=== PATIENT | female | born 1960 | race African-American/Black ===

== ENCOUNTER 2019-09-09 12:42 | Inpatient (IN) | payer MEDICARE, MEDICAID ==
[~2019-09-09] VITALS: Ht 165.1 cm; Wt 52.8 kg
[2019-09-09] MEDS ORDERED: INSULIN (12:51)
[2019-09-09] MEDS ORDERED: HALOPERIDOL LACTATE 5MG/ML VIAL IM ONE ×2 (13:00→13:12)
[2019-09-09] MEDS ORDERED: GLUCAGON,HUMAN RECOMBINANT 1MG/VIAL ONE (13:00)
[2019-09-09] MEDS ORDERED: LORAZEPAM 2MG/ML CPJ ONE (13:13)
[2019-09-09] MEDS ORDERED: DEXTROSE 50% WATER 50ML SYRINGE IV ONE ×2 (13:38→14:27)
[2019-09-09 13:47] LABS: BASOPHILS % 0.3 % (0.0-2.0); EOSINOPHILS % 0.2 % (0.0-5.0); HEMATOCRIT. 35.3 % (36.0-48.0); HEMOGLOBIN. 12.4 g/dL (12.0-16.0); LYMPHOCYTES % 9.2 % (20.0-50.0); MEAN CORPUSCULAR HEMOGLOBIN 33.6 pg (28.0-32.0); MEAN CORPUSCULAR VOLUME 96.2 fL (81.0-99.0); MEAN PLATELET VOLUME 8.6 fl (7.4-10.4); MONOCYTES % 7.3 % (2.0-8.0); PLATELET 309 x1000/uL (130-400); RED BLOOD CELL COUNT 3.67 mill/uL (4.2-5.4); RED CELL DISTRIBUTION WIDTH 15.5 % (11.6-14.6)
[2019-09-09 13:57] LABS: CHLORIDE 103 mEq/L (98-107)
[2019-09-09 13:59] LABS: ETHANOL BLOOD < 10 mg/dL
[2019-09-09] MEDS ORDERED: DEXT 5% WATER 500 ML IV ONE (14:30)
[2019-09-09] MEDS ORDERED: DEXTROSE 10% WATER 500 ML IV ONE (14:30)
[2019-09-09 14:43] LABS: CLARITY URINE CLEAR (CLEAR); COLOR URINE YELLOW (YELLOW); KETONES URINE NEGATIVE (NEGATIVE); LEUKOCYTE ESTERASE URINE NEGATIVE (NEGATIVE); NITRITE URINE NEGATIVE (NEGATIVE); OCCULT BLOOD URINE TRACE (NEGATIVE); PROTEIN URINE 2+ (NEGATIVE); SPECIFIC GRAVITY URINE 1.017 (1.005-1.030); UROBILINOGEN URINE 0.2 E.U./dL (0.2-1.0)
[2019-09-09 15:02] LABS: *AMPHETAMINES SCREEN URINE NEGATIVE (NEGATIVE); *BARBITURATES SCREEN URINE NEGATIVE (NEGATIVE); CANNABINOID URINE SCREEN NEGATIVE (NEGATIVE); OPIATES URINE SCREEN NEGATIVE (NEGATIVE); PHENCYCLIDINE URINE SCREEN NEGATIVE (NEGATIVE)
[2019-09-09 15:03] LABS: *COCAINE SCREEN URINE NEGATIVE (NEGATIVE); METHADONE URINE SCREEN NEGATIVE (NEGATIVE)
[2019-09-09 15:05] LABS: *BENZODIAZEPINES SCREEN URINE NEGATIVE (NEGATIVE)
[2019-09-09] MEDS ORDERED: DEXT 5%/0.45% NACL 1000ML 1,000 ML IV SCH (19:52)
[2019-09-09] MEDS ORDERED: DOCUSATE SODIUM 100MG CAPSULE PO PRN (20:00)
[2019-09-09] MEDS ORDERED: HALOPERIDOL LACTATE 5MG/ML VIAL IM PRN (20:00)
[2019-09-09] MEDS ORDERED: GUAIFENESIN 200MG/10ML SUGAR FREE UDC PO PRN (20:00)
[2019-09-09] MEDS ORDERED: DEXTROSE 50% WATER 50ML SYRINGE IV PRN ×2 (20:00→22:30)
[2019-09-09] MEDS ORDERED: MAGNESIUM/ALUMINUM HYDROXIDE/SIMETHICONE 30ML UDC PO PRN (20:00)
[2019-09-09] MEDS ORDERED: HYDRALAZINE 20MG/ML VIAL IV PRN (20:00)
[2019-09-09] MEDS ORDERED: DIPHENHYDRAMINE 50MG/ML VIAL IV PRN (20:00)
[2019-09-09] MEDS ORDERED: ONDANSETRON HCL 4MG/2ML INJ IV PRN (20:00)
[2019-09-09] MEDS ORDERED: CLONIDINE 0.1MG TABLET PO PRN (20:00)
[2019-09-09] MEDS ORDERED: HYDROCODONE/ACETAMINOPHEN 10/325MG TABLET PO PRN (20:00)
[2019-09-09] MEDS ORDERED: MORPHINE SULFATE 2 MG/ML CPJ (NOT FOR IM USE) IV PRN (20:00)
[2019-09-09] MEDS ORDERED: IPRATROPIUM/ALBUTEROL 0.5-3(2.5)MG/3ML NEB NEB PRN (20:00)
[2019-09-09] MEDS ORDERED: ACETAMINOPHEN 325MG TABLET PO PRN (20:00)
[2019-09-09] MEDS: ENOXAPARIN 40MG/0.4ML SYR SUBCUT SCH (21:23)
[2019-09-09] MEDS ORDERED: CEFTRIAXONE 1 G PREMIX 50 ML IV NR (22:30)
[2019-09-09] MEDS: INSULIN LISPRO 100 UNITS/ML SUBCUT SCH (22:50)
[2019-09-09] MEDS: SODIUM CHLORIDE 0.45% 1,000 ML IV SCH (23:06)
[2019-09-09] MEDS: LORAZEPAM 2MG/ML CPJ IV PRN (23:15)
[2019-09-09 23:58] VITALS: BP 122/78
[2019-09-10] VITALS (7 sets, daily range): BP systolic 110–150; BP diastolic 78–97
[2019-09-10] MEDS: SODIUM CHLORIDE 0.9% INJ 3ML FLUSH IVF SCH ×4 (01:36→21:41)
[2019-09-10] MEDS: BLOOD SUGAR DIAGNOSTIC STRIP TEST SCH ×5 (01:37→21:40)
[2019-09-10] MEDS: LORAZEPAM 2MG/ML CPJ IV PRN ×3 (06:21→19:03)
[2019-09-10 07:35] LABS: BASOPHILS % 0.9 % (0.0-2.0); EOSINOPHILS % 0.7 % (0.0-5.0); HEMATOCRIT. 34.9 % (36.0-48.0); HEMOGLOBIN. 11.9 g/dL (12.0-16.0); LYMPHOCYTES % 19.8 % (20.0-50.0); MEAN CORPUSCULAR HEMOGLOBIN 32.9 pg (28.0-32.0); MEAN CORPUSCULAR VOLUME 96.1 fL (81.0-99.0); MEAN PLATELET VOLUME 8.8 fl (7.4-10.4); MONOCYTES % 12.3 % (2.0-8.0); NEUTROPHILS % 66.3 % (40.0-76.0); PLATELET 320 x1000/uL (130-400); RED BLOOD CELL COUNT 3.63 mill/uL (4.2-5.4); RED CELL DISTRIBUTION WIDTH 15.9 % (11.6-14.6)
[2019-09-10 07:50] LABS: CHLORIDE 103 mEq/L (98-107)
[2019-09-10] MEDS: INSULIN LISPRO 100 UNITS/ML SUBCUT SCH ×4 (07:50→21:00)
[2019-09-10] MEDS ORDERED: LORAZEPAM 2MG/ML CPJ IV PRN (09:00)
[2019-09-10] MEDS: SODIUM CHLORIDE 0.45% 1,000 ML IV SCH (12:29)
[2019-09-10] MEDS: ENOXAPARIN 40MG/0.4ML SYR SUBCUT SCH (21:40)
[2019-09-10] MEDS: LORAZEPAM 2MG/ML CPJ IM PRN (22:25)
[2019-09-11] VITALS: BP 142/77
[2019-09-11] MEDS: SODIUM CHLORIDE 0.45% 1,000 ML IV SCH ×2 (00:53→16:13)
[2019-09-11 04:50] VITALS: BP 154/90
[2019-09-11] MEDS: SODIUM CHLORIDE 0.9% INJ 3ML FLUSH IVF SCH ×2 (06:02→14:48)
[2019-09-11] MEDS: BLOOD SUGAR DIAGNOSTIC STRIP TEST SCH ×4 (06:21→20:39)
[2019-09-11 08:00] VITALS: BP 135/81
[2019-09-11] MEDS: INSULIN LISPRO 100 UNITS/ML SUBCUT SCH ×4 (08:04→20:38)
[2019-09-11 08:22] LABS: VITAMIN B12 SERUM 1491 pg/mL (211-911)
[2019-09-11] MEDS: LORAZEPAM 2MG/ML CPJ IM PRN (10:31)
[2019-09-11 12:00] VITALS: BP 135/72
[2019-09-11] MEDS ORDERED: INSULIN LISPRO 100 UNITS/ML SUBCUT PRN ×2 (12:20→12:50)
[2019-09-11] MEDS ORDERED: RISPERIDONE 0.25MG TABLET PO SCH (14:30)
[2019-09-11 16:00] VITALS: BP 151/83
[2019-09-11] MEDS: LORAZEPAM 2MG/ML CPJ IV PRN (16:28)
[2019-09-11 20:00] VITALS: BP 136/78
[2019-09-11] MEDS: ENOXAPARIN 40MG/0.4ML SYR SUBCUT SCH (20:38)
[2019-09-11] MEDS: RISPERIDONE 0.25MG TABLET PO SCH (20:38)
[2019-09-12] VITALS: BP 130/80
[2019-09-12] MEDS: LORAZEPAM 2MG/ML CPJ IM PRN (02:49)
[2019-09-12 04:00] VITALS: BP 140/83
[2019-09-12] MEDS: BLOOD SUGAR DIAGNOSTIC STRIP TEST SCH (07:20)
[2019-09-12 07:59] VITALS: BP 118/78
[2019-09-12] MEDS: RISPERIDONE 0.25MG TABLET PO SCH (10:05)
[2019-09-12] MEDS: INSULIN LISPRO 100 UNITS/ML SUBCUT SCH (10:08)
[2019-09-12 12:11] VITALS: BP 135/80
[2019-09-12 12:19] VITALS: BP 135/80
== END 2019-09-12 12:50 | disposition home or self-care (01) | DRG 637 ==
LOC: ER 12:42 → 6WST 18:11 → ENRESERV 21:37 → 6WST 09-10
PROVIDERS: ADMIT Internal Medicine; ATTEND Internal Medicine
DX: E11.649 Type 2 diabetes mellitus with hypoglycemia without coma (principal); G93.41 Metabolic encephalopathy; N39.0 Urinary tract infection, site not specified; Z68.1 Body mass index [BMI] 19.9 or less, adult; E46 Unspecified protein-calorie malnutrition; E44.1 Mild protein-calorie malnutrition; F99 Mental disorder, not otherwise specified; R62.7 Adult failure to thrive; G24.01 Drug induced subacute dyskinesia; T50.905A Adverse effect of unspecified drugs, medicaments and biological substances, initial encounter; Y92.89 Other specified places as the place of occurrence of the external cause; L81.9 Disorder of pigmentation, unspecified
CPT/HCPCS: 36415; 80053; 80305; 80320; 81003; 82607; 82962; 83036; 84443; 85025; 93970; 99291; J0696; J1200; J1610; J1630; J1650; J1815; J2060; J7060; G0480

== ENCOUNTER 2019-09-19 07:33 | Inpatient (IN) | payer MEDICARE, MEDICAID ==
[~2019-09-19] VITALS: Ht 165.1 cm; Wt 53.1 kg
[2019-09-19] MEDS ORDERED: SODIUM CHLORIDE 0.9% 1,000 ML IV ONE (08:42)
[2019-09-19 09:20] LABS: CHLORIDE 103 mEq/L (98-107)
[2019-09-19 09:34] LABS: HEMATOCRIT. 37.8 % (36.0-48.0); HEMOGLOBIN. 12.6 g/dL (12.0-16.0); MEAN CORPUSCULAR HEMOGLOBIN 32.6 pg (28.0-32.0); RED BLOOD CELL COUNT 3.86 mill/uL (4.2-5.4); RED CELL DISTRIBUTION WIDTH 16.1 % (11.6-14.6)
[2019-09-19 10:09] LABS: PLATELET ESTIMATE NORMAL
[2019-09-19 10:12] LABS: PLATELET 213 x1000/uL (130-400)
[2019-09-19 10:29] LABS: PARTIAL THROMBOPLASTIN TIME 28.5 sec (23.4-31.0); PROTHROMBIN TIME 10.3 sec (9.6-11.0)
[2019-09-19] MEDS ORDERED: ASPIRIN 325MG EC TABLET PO ONE (10:45)
[2019-09-19] MEDS ORDERED: LORAZEPAM 2MG/ML CPJ IV ONE (12:30)
[2019-09-19] MEDS ORDERED: MAGNESIUM/ALUMINUM HYDROXIDE/SIMETHICONE 30ML UDC PO PRN (14:00)
[2019-09-19] MEDS ORDERED: GUAIFENESIN 200MG/10ML SUGAR FREE UDC PO PRN (14:00)
[2019-09-19] MEDS ORDERED: DOCUSATE SODIUM 100MG CAPSULE PO PRN (14:00)
[2019-09-19] MEDS ORDERED: ACETAMINOPHEN 325MG TABLET PO PRN ×2 (14:00)
[2019-09-19] MEDS ORDERED: IPRATROPIUM/ALBUTEROL 0.5-3(2.5)MG/3ML NEB HHN PRN (14:00)
[2019-09-19] MEDS ORDERED: CLONIDINE 0.1MG TABLET PO PRN (14:00)
[2019-09-19] MEDS ORDERED: KETOROLAC 15MG/ML VIAL IV PRN (14:00)
[2019-09-19] MEDS ORDERED: NITROGLYCERIN 0.4MG TABLET SL SL PRN (14:00)
[2019-09-19] MEDS ORDERED: ONDANSETRON HCL 4MG/2ML INJ IV PRN (14:00)
[2019-09-19] MEDS: ENOXAPARIN 40MG/0.4ML SYR SUBCUT SCH (15:42)
[2019-09-19 16:01] LABS: CLARITY URINE CLEAR (CLEAR); COLOR URINE YELLOW (YELLOW); KETONES URINE TRACE (NEGATIVE); LEUKOCYTE ESTERASE URINE NEGATIVE (NEGATIVE); NITRITE URINE NEGATIVE (NEGATIVE); OCCULT BLOOD URINE NEGATIVE (NEGATIVE); PROTEIN URINE 1+ (NEGATIVE); SPECIFIC GRAVITY URINE 1.023 (1.005-1.030); UROBILINOGEN URINE 0.2 E.U./dL (0.2-1.0)
[2019-09-19 16:02] LABS: T4 FREE 1.28 ng/dL (0.76-1.46)
[2019-09-19 16:25] LABS: *AMPHETAMINES SCREEN URINE NEGATIVE (NEGATIVE)
[2019-09-19 16:26] LABS: *BARBITURATES SCREEN URINE NEGATIVE (NEGATIVE); *BENZODIAZEPINES SCREEN URINE NEGATIVE (NEGATIVE); *COCAINE SCREEN URINE NEGATIVE (NEGATIVE); CANNABINOID URINE SCREEN NEGATIVE (NEGATIVE); METHADONE URINE SCREEN NEGATIVE (NEGATIVE); OPIATES URINE SCREEN NEGATIVE (NEGATIVE); PHENCYCLIDINE URINE SCREEN NEGATIVE (NEGATIVE)
[2019-09-19 16:26] LABS: CREATINE KINASE 705 IU/L (26-192)
[2019-09-19 16:27] LABS: CREATINE KINASE MB FRACTION 6.2 ng/mL (0.5-3.6)
[2019-09-19 16:29] LABS: VITAMIN B12 SERUM 1325 pg/mL (211-911)
[2019-09-19 16:37] LABS: FOLIC ACID (FOLATE) SERUM > 20.00 ng/mL (>5.38)
[2019-09-19] MEDS: BLOOD SUGAR DIAGNOSTIC STRIP TEST SCH ×2 (18:15→22:46)
[2019-09-19] MEDS: INSULIN LISPRO 100 UNITS/ML SUBCUT SCH ×2 (18:16→23:15)
[2019-09-19] MEDS: ASCORBIC ACID 500 MG TABLET PO SCH (21:35)
[2019-09-19] MEDS: HALOPERIDOL LACTATE 5MG/ML VIAL IM PRN (21:35)
[2019-09-19] MEDS: FAMOTIDINE 20MG TABLET PO SCH (21:35)
[2019-09-19] MEDS: LISINOPRIL 20MG TABLET PO SCH (22:45)
[2019-09-19] MEDS: ZOLPIDEM TARTRATE 5MG TABLET PO PRN (22:47)
[2019-09-20 00:27] LABS: CREATINE KINASE 687 IU/L (26-192)
[2019-09-20 00:28] LABS: CREATINE KINASE MB FRACTION 6.7 ng/mL (0.5-3.6)
[2019-09-20] MEDS: HALOPERIDOL LACTATE 5MG/ML VIAL IM PRN ×3 (03:05→23:34)
[2019-09-20] MEDS: LORAZEPAM 0.5MG TABLET PO PRN ×3 (05:07→21:01)
[2019-09-20] MEDS: BLOOD SUGAR DIAGNOSTIC STRIP TEST SCH ×4 (06:16→21:00)
[2019-09-20] MEDS: DEXTROSE 50% WATER 50ML SYRINGE IV PRN (06:49)
[2019-09-20] MEDS: INSULIN LISPRO 100 UNITS/ML SUBCUT SCH ×4 (06:57→21:00)
[2019-09-20] MEDS: ZINC SULFATE 220 MG ( 50 ) CAPSULE PO SCH (09:00)
[2019-09-20] MEDS: FAMOTIDINE 20MG TABLET PO SCH (09:00)
[2019-09-20] MEDS: ASCORBIC ACID 500 MG TABLET PO SCH ×2 (09:00→21:01)
[2019-09-20] MEDS: LISINOPRIL 20MG TABLET PO SCH ×2 (09:00→21:01)
[2019-09-20] MEDS: ASPIRIN 325MG EC TABLET PO SCH (09:00)
[2019-09-20] MEDS: INSULIN GLARGINE UD 100 UNITS/ML SYR SUBCUT SCH (12:08)
[2019-09-20 13:00] VITALS: BP 118/75
[2019-09-20] MEDS: ENOXAPARIN 40MG/0.4ML SYR SUBCUT SCH (15:18)
[2019-09-20 16:12] VITALS: BP 118/75
[2019-09-20 20:00] VITALS: BP_SYST 109; BP_SYST 154; BP_DIAS 70; BP_DIAS 94
[2019-09-20] MEDS: FAMOTIDINE 10MG TABLET PO SCH (21:00)
[2019-09-20] MEDS: ZOLPIDEM TARTRATE 5MG TABLET PO PRN (21:07)
[2019-09-21] VITALS (8 sets, daily range): BP systolic 109–146; BP diastolic 73–88
[2019-09-21] MEDS: DEXTROSE 50% WATER 50ML SYRINGE IV PRN (06:41)
[2019-09-21] MEDS: BLOOD SUGAR DIAGNOSTIC STRIP TEST SCH ×4 (07:20→21:14)
[2019-09-21] MEDS: LISINOPRIL 20MG TABLET PO SCH ×2 (08:23→21:15)
[2019-09-21] MEDS: ASPIRIN 325MG EC TABLET PO SCH (08:23)
[2019-09-21] MEDS: INSULIN LISPRO 100 UNITS/ML SUBCUT SCH ×4 (08:23→21:29)
[2019-09-21] MEDS: ZINC SULFATE 220 MG ( 50 ) CAPSULE PO SCH (08:23)
[2019-09-21] MEDS: ASCORBIC ACID 500 MG TABLET PO SCH ×2 (08:24→21:15)
[2019-09-21] MEDS: FAMOTIDINE 10MG TABLET PO SCH ×2 (08:25→21:15)
[2019-09-21] MEDS: HALOPERIDOL LACTATE 5MG/ML VIAL IM PRN ×2 (09:38→19:09)
[2019-09-21] MEDS: INSULIN GLARGINE UD 100 UNITS/ML SYR SUBCUT SCH (10:19)
[2019-09-21] MEDS: RISPERIDONE 0.5MG TABLET PO SCH ×2 (10:24→17:47)
[2019-09-21] MEDS: LORAZEPAM 0.5MG TABLET PO PRN ×2 (11:21→15:57)
[2019-09-21] MEDS: ENOXAPARIN 40MG/0.4ML SYR SUBCUT SCH (15:44)
[2019-09-21] MEDS: ZOLPIDEM TARTRATE 5MG TABLET PO PRN (21:15)
[2019-09-22] MEDS: HALOPERIDOL LACTATE 5MG/ML VIAL IM PRN ×2 (01:51→08:51)
[2019-09-22 04:00] VITALS: BP 144/71
[2019-09-22] MEDS: RISPERIDONE 0.5MG TABLET PO SCH (05:49)
[2019-09-22] MEDS: LORAZEPAM 0.5MG TABLET PO PRN ×2 (05:49→09:41)
[2019-09-22] MEDS: BLOOD SUGAR DIAGNOSTIC STRIP TEST SCH (05:56)
[2019-09-22 08:00] VITALS: BP 159/86
[2019-09-22] MEDS: ZINC SULFATE 220 MG ( 50 ) CAPSULE PO SCH (08:16)
[2019-09-22] MEDS: ASCORBIC ACID 500 MG TABLET PO SCH (08:16)
[2019-09-22] MEDS: ASPIRIN 325MG EC TABLET PO SCH (08:17)
[2019-09-22] MEDS: LISINOPRIL 20MG TABLET PO SCH (08:17)
[2019-09-22] MEDS: FAMOTIDINE 10MG TABLET PO SCH (08:18)
[2019-09-22] MEDS: INSULIN LISPRO 100 UNITS/ML SUBCUT SCH (08:21)
[2019-09-22] MEDS: INSULIN GLARGINE UD 100 UNITS/ML SYR SUBCUT SCH (10:03)
[2019-09-22 11:28] VITALS: BP 145/85
== END 2019-09-22 12:45 | disposition home health service (06) | DRG 92 ==
LOC: ER 07:44 → MICUSO 11:09 → EDBEDREQ 11:24 → EDBEDREQTM 11:24 → SUPCPDRO 13:47 → 6WST 09-20 12:48
PROVIDERS: ADMIT Internal Medicine; ATTEND Internal Medicine
DX: G92 Toxic encephalopathy (principal); E44.1 Mild protein-calorie malnutrition; E87.1 Hypo-osmolality and hyponatremia; Z68.1 Body mass index [BMI] 19.9 or less, adult; R55 Syncope and collapse; E11.9 Type 2 diabetes mellitus without complications; E87.8 Other disorders of electrolyte and fluid balance, not elsewhere classified; W18.39XA Other fall on same level, initial encounter; I10 Essential (primary) hypertension; Z79.4 Long term (current) use of insulin; Z86.73 Personal history of transient ischemic attack (TIA), and cerebral infarction without residual deficits; Y93.89 Activity, other specified; Y92.89 Other specified places as the place of occurrence of the external cause; Y99.8 Other external cause status; Z86.59 Personal history of other mental and behavioral disorders
CPT/HCPCS: 36415; 71045; 80053; 80061; 80305; 81003; 82550; 82553; 82607; 82746; 82962; 83036; 83540; 83550; 83880; 84439; 84443; 84484; 85025; 87077; 87186; 93005; 93970; 97162; 97166; 99285; J1630; J1650; J1815; J2060; J7030

== ENCOUNTER 2021-06-30 17:24 | Emergency (ER) | payer MEDICARE, MEDICAID ==
[~2021-06-30] VITALS: Ht 167.6 cm; Wt 69.0 kg
[2021-06-30 20:52] LABS: BASOPHILS % 0.4 % (0.0-2.0); EOSINOPHILS % 0.5 % (0.0-5.0); HEMATOCRIT. 33.8 % (36.0-48.0); HEMOGLOBIN. 11.1 g/dL (12.0-16.0); LYMPHOCYTES % 9.3 % (20.0-50.0); MEAN CORPUSCULAR HEMOGLOBIN 29.9 pg (28.0-32.0); MEAN CORPUSCULAR VOLUME 91.4 fL (81.0-99.0); MEAN PLATELET VOLUME 8.3 fl (7.4-10.4); NEUTROPHILS % 84.8 % (40.0-76.0); PLATELET 202 x1000/uL (130-400); RED BLOOD CELL COUNT 3.69 mill/uL (4.2-5.4); RED CELL DISTRIBUTION WIDTH 14.7 % (11.6-14.6)
[2021-06-30 21:37] LABS: CHLORIDE 101 mEq/L (98-107)
[2021-06-30 22:22] LABS: CLARITY URINE CLEAR (CLEAR); COLOR URINE YELLOW (YELLOW); KETONES URINE TRACE (NEGATIVE); LEUKOCYTE ESTERASE URINE NEGATIVE (NEGATIVE); NITRITE URINE NEGATIVE (NEGATIVE); OCCULT BLOOD URINE 1+ (NEGATIVE); PH URINE 6.5 (4.5-8.0); PROTEIN URINE 2+ (NEGATIVE); SPECIFIC GRAVITY URINE 1.015 (1.005-1.030); UROBILINOGEN URINE 0.2 E.U./dL (0.2-1.0)
[2021-06-30 23:00] VITALS: BP 149/82
== END 2021-06-30 23:44 | disposition home or self-care (01) ==
LOC: ER 17:24
DX: E11.649 Type 2 diabetes mellitus with hypoglycemia without coma (principal); I10 Essential (primary) hypertension; E05.90 Thyrotoxicosis, unspecified without thyrotoxic crisis or storm; Z79.4 Long term (current) use of insulin
CPT/HCPCS: 36415; 71045; 80053; 81003; 82962; 84484; 85025; 93005; 99285